=== PATIENT | female | born 2000 | race Caucasian/White ===

== ENCOUNTER 2019-05-18 19:53 | Emergency (ER) | payer MEDICAID ==
[~2019-05-18] VITALS: Ht 157.5 cm; Wt 54.0 kg
[~2019-05-18 19:53] MED LIST: ACET500C5 PO; CEPH-443 PO; PREN-93 PO
[2019-05-18 20:12] VITALS: BP 111/63; PULSE 79; RESP 18; Ht 157.5 cm; Wt 54.0 kg
[2019-05-18] MEDS ORDERED: ACETAMINOPHEN 500 MG TAB PO STA (21:29)
== END 2019-05-19 00:41 | disposition left against medical advice (07) ==
LOC: FTE 19:53
DX: O23.41 Unspecified infection of urinary tract in pregnancy, first trimester (principal); R10.2 Pelvic and perineal pain; Z3A.01 Less than 8 weeks gestation of pregnancy
CPT/HCPCS: 76801; 76817; 80053; 81001; 82150; 83690; 84702; 85025; 86900; 86901; 87086; Z7502; Z7610